=== PATIENT | male | born 2000 | race African-American/Black ===

== ENCOUNTER 2023-06-24 20:49 | Emergency (ER) | payer SELFPAY ==
[~2023-06-24] VITALS: Ht 190.5 cm; Wt 80.0 kg
[~2023-06-24 20:49] MED LIST: ALBUTEROL
[2023-06-24 20:52] VITALS: BP 143/89; PULSE 88; RESP 18; TEMP 98.4; O2SAT 100
== END 2023-06-25 02:10 | disposition left against medical advice (07) ==
LOC: ER 20:49
DX: Z53.21 Procedure and treatment not carried out due to patient leaving prior to being seen by health care provider (principal)
CPT/HCPCS: 99281

== ENCOUNTER 2024-11-02 04:45 | Emergency (ER) | payer OTHER ==
[~2024-11-02] VITALS: Ht 190.5 cm; Wt 83.0 kg
[2024-11-02 05:01] VITALS: BP 136/56; PULSE 89; RESP 18; TEMP 36.7; O2SAT 100
[2024-11-02] MEDS ORDERED: IBUPROFEN 600MG TABLET PO ONE (07:00)
== END 2024-11-02 07:35 | disposition home or self-care (01) ==
LOC: ER 04:45
DX: M25.562 Pain in left knee (principal); J45.909 Unspecified asthma, uncomplicated; Z79.899 Other long term (current) drug therapy
CPT/HCPCS: 73562; 99283